=== PATIENT | male | born 1975 ===

== ENCOUNTER 2017-06-01 13:16 | Emergency (ER) | payer OTHER ==
[2017-06-01 13:49] VITALS: BP 140/81; PULSE 74; RESP 18; TEMP 98; O2SAT 99
--- NOTE | 2017-06-01 14:09 | ED PDOC ---
HPI: Headache Time Seen by Provider: 06/01/17 13:53 Chief Complaint (Nursing): Headache Chief Complaint (Provider): Headache History Per: Patient History/Exam Limitations: no limitations Onset/Duration Of Symptoms: Days (x4) Current Symptoms Are (Timing): Still Present Pain Scale Rating Of: 5 Additional Complaint(s): Gadiel Correa is a 41 year old male who presents to the emergency department with a complaint of generalized headache for the past 5 days. Patient reports taking 2 tablets of Advil today which helped somewhat. No associated dizziness, nausea, vomiting, fever, chills, neck pain or vision changes. Patient rates pain as 5/10 and states this is not the worst headache of his life. He denies any trauma or injury. Patient states he does not have a PMD so he came to ED. Patient states that he does not have any associated weakness despite chief complaint stating otherwise. PMD: none provided Past Medical History Reviewed: Historical Data, Nursing Documentation, Vital Signs Vital Signs: Last Vital Signs Temp 98 F 06/01/17 13:45 Pulse 74 06/01/17 13:45 Resp 18 06/01/17 13:45 BP 140/81 06/01/17 13:45 Pulse Ox 99 06/01/17 13:45 - Medical History PMH: No Chronic Diseases - Surgical History Surgical History: No Surg Hx - Family History Family History: States: No Known Family Hx - Living Arrangements Living Arrangements: With Family - Social History Current smoker - smoking cessation education provided: No Alcohol: None Drugs: Denies - Allergies Allergies/Adverse Reactions: Allergies Allergy/AdvReac Type Severity Reaction Status Date / Time No Known Allergies Allergy Verified 06/01/17 13:45 Review of Systems ROS Statement: Except As Marked, All Systems Reviewed And Found Negative Constitutional: Negative for: Fever, Chills Eyes: Negative for: Vision Change Respiratory: Negative for: Cough Gastrointestinal: Negative for: Nausea, Vomiting Musculoskeletal: Negative for: Neck Pain, Back Pain Neurological: Positive for: Headache, Other (denies trauma or injury). Negative for: Dizziness Physical Exam - Reviewed Nursing Documentation Reviewed: Yes Vital Signs Reviewed: Yes - Physical Exam Appears: Positive for: Well, Non-toxic, No Acute Distress Head Exam: Positive for: ATRAUMATIC, NORMAL INSPECTION, NORMOCEPHALIC Skin: Positive for: Normal Color, Dry. Negative for: Rash Eye Exam: Positive for: Normal appearance, EOMI, PERRL ENT: Positive for: Normal ENT Inspection Neck: Positive for: Normal, Painless ROM, Supple Cardiovascular/Chest: Positive for: Regular Rate, Rhythm Respiratory: Positive for: CNT, Normal Breath Sounds Extremity: Positive for: Normal ROM Neurologic/Psych: Positive for: Alert, retort setter II-XII, Oriented, Gait (steady). Negative for: Motor/Sensory Deficits, Aphasia, Facial Droop - ECG O2 Sat by Pulse Oximetry: 99 (RA) Pulse Ox Interpretation: Normal Medical Decision Making Medical Decision Making: Initial Impression: Generalized Headache Patient is in no distress upon arrival. He is well-appearing, nontoxic appearing. Initial Plan: Tylenol 650mg PO Reglan 10mg PO Headache resolved after meds given, patient states he feels much better. Patient was advised to take tylenol or motrin for headache as needed and to drink plenty of water daily. He was referred to clinic for follow up in 2-3 days. Patient was instructed that if headache pain worsens or is associated with dizziness, weakness, fever, chills, vision changes or any other concerning symptoms, he should RTED immediately. Upon provider evaluation patient is medically stable and requires no further treatment in the ED at this time. Patient will be discharged home with Rx. Counseling was provided and all questions were answered regarding diagnosis and need for follow up with PCP. There is agreement to discharge plan. Return if symptoms persist or worsen. Clinical Impression: Headache Scribe Attestation: Documented by Ara Perry, acting as a scribe for Yue Andersen PA-C. Provider Scribe Attestation: All medical record entries made by the Scribe were at my direction and personally dictated by me. I have reviewed the chart and agree that the record accurately reflects my personal performance of the history, physical exam, medical decision making, and the department course for this patient. I have also personally directed, reviewed, and agree with the discharge instructions and disposition. Disposition - Clinical Impression Clinical Impression: Headache - Patient ED Disposition Is Patient to be Admitted: No Doctor Will See Patient In The: Office Counseled Patient/Family Regarding: Diagnosis, Need For Followup, Rx Given - Disposition Referrals: [facility] [Outside] Disposition: Routine/Home Disposition Time: 14:46 Condition: IMPROVED Additional Instructions: Take tylenol or motrin as needed for headache. Follow up in 2-3 days with clinic or return any time if acutely worse. Instructions: General Headache (ED)
== END 2017-06-01 15:32 | disposition home or self-care (01) ==
LOC: H.ER 13:16
DX: R51 Headache (principal)